=== PATIENT | male | born 1985 | race Caucasian/White ===

== ENCOUNTER 2016-12-06 12:38 | Emergency (ER) | payer OTHER ==
[~2016-12-06] VITALS: Ht 170.2 cm; Wt 116.1 kg
[2016-12-06 12:45] VITALS: BP 146/94
--- NOTE | 2016-12-06 13:31 | ED UPPER/LOWER EXTREMITY COMPL ---
History of Present Illness General Chief Complaint: Laceration Procedure Stated Complaint: LAC TO LEFT RING FINGER Source: patient Exam Limitations: no limitations Vital Signs & Intake/Output Vital Signs & Intake/Output Vital Signs Date Time Temp Pulse Resp B/P Pulse O2 O2 Flow FiO2 Ox Delivery Rate 12/06 1245 96.3 98 16 146/94 95 Room Air Allergies Coded Allergies: Penicillins (HIVES 12/06/16) Reconcile Medications No Known Home Medications Triage Note: PT STATES HE CUT HIS LEFT RING FINGER WITH A RAZOR BLADE ABOUT 1/2 HOURS AGO. BLEEDING CONTROLED AT TRIAGE. PT UNSURE OF TETANUS STATUS. Triage Nurses Notes Reviewed? yes Onset: Abrupt Duration: constant Timing: single episode today Severity: mild Severity Numbers: 1 Pain/Injury Location: Left: 4th finger. 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 Patient is right arm dominant. No medications prior to arrival. Tetanus is unknown. C/O 10/13 localized pain. No nail involvement. (HAROON STEPHENSON) Past History Travel History Traveled to [place] past 21 day No Medical History Any Pertinent Medical History? see below for history Gastrointestinal: GERD Surgical History Surgical History: non-contributory Psychosocial History What is your primary language Vincentian Tobacco Use: Current Daily Use Daily Tobacco Use Amount/Type: => 5 Cigarettes daily ETOH Use: occasional use Illicit Drug Use: denies illicit drug use Family History Hx Contributory? No (HAROON STEPHENSON) Review of Systems Review of Systems Constitutional: Reports: no symptoms. EENTM: Reports: no symptoms. Respiratory: Reports: no symptoms. Cardiovascular: Reports: no symptoms. Gastrointestinal/Abdominal: Reports: no symptoms. Genitourinary: Reports: no symptoms. Musculoskeletal: Reports: no symptoms. Skin: Reports: see HPI. Neurological/Psychological: Reports: no symptoms. Hematologic/Endocrine: Reports: see HPI, bleeding. Immunological: Reports: no symptoms. All Other Systems: Reviewed and Negative (HAROON STEPHENSON) Physical Exam Physical Exam General Appearance: no apparent distress, alert, comfortable Head: atraumatic Neurologic/Tendon: normal sensation, normal motor functions, normal tendon functions, responds to pain, no evidence tendon injury, no pulse deficit Skin: normal color, warm/dry Comments: Well-developed well-nourished no apparent distress. HEENT: Atraumatic, extraocular motion intact Neck: Supple, no lymphadenopathy Back: Nontender Respiratory: No respiratory distress Extremities: No edema, full range of motion Neuro: Alert and oriented x3 Psych: Mood affect normal, normal memory normal judgment. Diagram Hands Front 1) 1.5 cm clean linear superficial laceration Full active range of motion OF flexion AND extension full resisted range of motion noted 5/5 strength no tendon deficit no exposed bone (HAROON STEPHENSON) Progress Differential Diagnosis: arterial insufficiency, compartment syndrome, contusion, dislocation, DVT, fracture, gout, septic arthritis, sprain, tendon injury Plan of Care: Current Medications Sig/Phyllis Start time Last Medication Dose Stop Time Status Admin Lidocaine 20 ML ONCE ONE 12/06 1400 UNVr (Lidocaine 1%) 12/06 1401 No tendon deficit noted no concerns of fracture no concerns of foreign body. Patient tolerated suture placement well. (HAROON STEPHENSON) Departure Departure Disposition: HOME OR SELF CARE Condition: Stable Clinical Impression Primary Impression: Laceration of left ring finger Referrals: ZOILA DEMARCO MD (PCP/Family) Additional Instructions: As discussed begin to apply bacitracin to the area once a day for the following 4 days to prevent infection, then leave wound open to improve healing. If you note signs of infection redness, pain, swelling, discharge return to emergency room. Return to emergency room in 7-10 days for suture removal. Try to keep area dry and clean as possible. Departure Forms: Customer Survey General Discharge Information Prescriptions: Current Visit Scripts No Known Home Medications (HAROON STEPHENSON) PA/TOP INVENTORY CONTROL EXECUTIVE Co-Sign Statement Statement: ED Attending supervision documentation- [] I saw and evaluated the patient. I have also reviewed all the pertinent lab results and diagnostic results. I agree with the findings and the plan of care as documented in the PA's/TOP INVENTORY CONTROL EXECUTIVE's documentation. x I have reviewed the ED Record and agree with the PA's/TOP INVENTORY CONTROL EXECUTIVE's documentation. [] Additions or exceptions (if any) to the PAs/TOP INVENTORY CONTROL EXECUTIVE's note and plan are summarized below: [] (LULY CUELLAR,TWILA) Procedures Laceration/Wound Repair Laceration/Wound Repair: Wound Location: upper extremity Wound's Depth, Shape: linear, superficial Wound Length (cm): 1.5 Wound Explored: clean, no foreign body removed, irrigated extensively Irrigated w/ Saline (ccs): 360 Betadine Prep? Yes Anesthesia: 1% lidocaine Volume Anesthetic (ccs): 3 Wound Repaired With: sutures Suture Size/Type: 5:0 Number of Sutures: 5 Layer Closure? No Progress: Margins revised the suture placement patient tolerated well bacitracin was then applied with bandage (HAROON STEPHENSON)
== END 2016-12-06 14:36 ==
LOC: ERH 12:38
DX: S61.215A Laceration without foreign body of left ring finger without damage to nail, initial encounter (principal); W26.8XXA Contact with other sharp object(s), not elsewhere classified, initial encounter; Y93.89 Activity, other specified; Y92.9 Unspecified place or not applicable
CPT/HCPCS: 90471; 90714